=== PATIENT | female | born 1970 | race Caucasian/White ===

== ENCOUNTER 2018-03-10 08:13 | Inpatient (IN) | payer OTHER ==
[2018-03-10] MEDS ORDERED: NITROGLYCERIN 0.4 MG/TAB 25 TAB/BOTTLE ONE (08:35)
[2018-03-10] MEDS ORDERED: NITROGLYCERIN 0.4 MG/TAB 25 TAB/BOTTLE SL PRN (08:36)
--- NOTE | 2018-03-10 08:37 | ER Document Report ---
ED General - General Chief Complaint: Shortness Of Breath Stated Complaint: SHORTNESS OF BREATH Time Seen by Provider: 03/10/18 08:27 TRAVEL OUTSIDE OF THE [place] IN LAST 30 DAYS: No - HPI Patient complains to provider of: Shortness of breath Notes: Patient coming in for evaluation of chest pain and shortness of breath states ongoing since approximately 700/730 yesterday. Patient states woke up this morning for chest pain continued and worsened therefore came to the ER for fur ther evaluation. Patient having diaphoresis states pain is left upper chest left lateral chest that also hurts whenever she moves around takes a deep breath. Patient is states she has been to the wound care approximate 3 times in the last valuation of her symptoms however today worsening. Patient denies any past medical history states no allergies to medications does not take any medications denies smoking denies drinking denies drug abuse. Upon my evaluation patient was to be in mild to moderate distress. Able to speak in complete sentences. - Related Data Allergies/Adverse Reactions: No Known Allergies Allergy (Unverified 03/10/18 08:14) Past Medical History - Social History Smoking Status: Former Smoker Family History: Reviewed & Not Pertinent Review of Systems - Review of Systems Constitutional: No symptoms reported EENT: No symptoms reported Cardiovascular: Chest pain, Dyspnea Respiratory: Short of breath, Sputum Gastrointestinal: No symptoms reported Genitourinary: No symptoms reported Female Genitourinary: No symptoms reported Musculoskeletal: No symptoms reported Skin: No symptoms reported Hematologic/Lymphatic: No symptoms reported Neurological/Psychological: No symptoms reported -: Yes All other systems reviewed and negative Physical Exam - Vital signs Vitals: Pulse Ox 95 03/10/18 08:27 Interpretation: Tachycardic, Tachypneic - General General appearance: Appears well, Alert In distress: Mild - HEENT Head: Normocephalic, Atraumatic Eyes: Normal Pupils: PERRL - Respiratory Respiratory status: Respiratory distress, Tachypnea Chest status: Nontender Breath sounds: Other - Decreased air movement on the right wheezes throughout Chest palpation: Normal - Cardiovascular Rhythm: Regular Heart sounds: Normal auscultation Murmur: No - Abdominal Inspection: Normal Distension: No distension Bowel sounds: Normal Tenderness: Nontender Organomegaly: No organomegaly - Back Back: Normal, Nontender - Extremities General upper extremity: Normal inspection, Nontender, Normal color, Normal ROM, Normal temperature General lower extremity: Normal inspection, Nontender, Normal color, Normal ROM, Normal temperature, Normal weight bearing. No: Carroll's sign - Neurological Neuro grossly intact: Yes Cognition: Normal Orientation: AAOx4 [place] Coma Scale Eye Opening: Spontaneous Arpan Coma Scale Verbal: Oriented [place] Coma Scale Motor: Obeys Commands [place] Coma Scale Total: 15 Speech: Normal Motor strength normal: LUE, RUE, LLE, RLE Sensory: Normal - Psychological Associated symptoms: Normal affect, Normal mood - Skin Skin Temperature: Warm Skin Moisture: Diaphoretic Skin Color: Normal Course - Re-evaluation Re-evalutation: 03/10/18 08:45 Patient coming in with chest pain ongoing for greater than 12 hours with EKG some slight ST segment elevation in V2 V3 pain left upper chest left lower chest with pain on movement and my wrist. Because of the slight EKG changes I did discuss the case with Dr. Echevarria requesting that we give the patient 6 mg of adenosine to slow the heart rate down to think this is possibly underlying atrial fibrillation or an SVT sees no signs of acute OK at this time requesting continuous EKG to be performed while adenosine was given. Same EKG was performed showing slight ST ablation in V2 V3 however we are able to perform a chest x-ray showing complete whiteout of the right side of the lung. Continue to administer IV fluids which did improve the patient's heart rate a repeat EKG that showed sinus tachycardia. At this time with the patient chest x-ray showing complete whiteout consistent with pneumonia I elected to not perform the adenosine I did discuss this with Dr. Echevarria with his new finding do not think patient is having any acute OK but more likely patient is septic from pneumonia reason for the tachycardia of her presentation. Because the extensive size of the pneumonia a CTA was performed going to rule out PE but also to evaluate for underlying mass or obstructive process. CT scan again did not demonstrate a pneumonia with a subpulmonic pleural effusion. Patient's white count returned at 31 patient was started on Levaquin discussed with the hospital staff will admit the patient to IMCU. Patient was continue to monitor down in the ER with very minimal improvement of her respiratory state still to the Neck therefore elected to place the patient on BiPAP Patient will be admitted to the hospital - Vital Signs Vital signs: Temp Pulse Resp BP Pulse Ox 97.6 F 141 H 27 H 144/95 H 98 12/27/18 08:41 03/10/18 08:41 03/10/18 15:15 03/10/18 15:15 03/10/18 15:15 - Laboratory Result Diagrams: 03/10/18 08:55 03/10/18 08:55 Laboratory results interpreted by me: 03/10/18 03/10/18 03/10/18 08:55 08:55 08:55 WBC 31.3 H* RDW 16.4 H Seg Neuts % (Manual) 88 H Band Neutrophils % 2 L Lymphocytes % (Manual) 4 L Myelocytes % 1 H Abs Neuts (Manual) 28.5 H ESR 97 H VBG pH VBG pCO2 Sodium 131.4 L Chloride 96 L Carbon Dioxide 20 L BUN 22 H Lactic Acid Direct Bilirubin 0.7 H AST 49 H Alkaline Phosphatase 257 H Creatine Kinase < 20 L NT-Pro-B Natriuret Pep 2070 H Total Protein 5.3 L Albumin 2.5 L Urine Protein Urine Ketones Urine Ascorbic Acid 03/10/18 03/10/18 03/10/18 08:55 09:17 10:27 WBC RDW Seg Neuts % (Manual) Band Neutrophils % Lymphocytes % (Manual) Myelocytes % Abs Neuts (Manual) ESR VBG pH 7.44 H VBG pCO2 32.8 L Sodium Chloride Carbon Dioxide BUN Lactic Acid 2.4 H Direct Bilirubin AST Alkaline Phosphatase Creatine Kinase NT-Pro-B Natriuret Pep Total Protein Albumin Urine Protein 100 H Urine Ketones 20 H Urine Ascorbic Acid 40 H Critical Care Note - Critical Care Note Total time excluding time spent on procedures (mins): 80 Comments: Multiple evaluations of the patient due to initial EKG abnormalities patient complaining of chest pain diaphoretic concern for possible underlying cardiac issue discussion with the oil treater also time spent managing the patient for her tachypnea requiring BiPAP titration Discharge - Discharge Clinical Impression: Pneumonia Qualifiers: Pneumonia type: due to unspecified organism Laterality: right Lung location: unspecified part of lung Qualified Code(s): J18.9 - Pneumonia, unspecified organism Sepsis Qualifiers: Sepsis type: sepsis due to unspecified organism Qualified Code(s): A41.9 - Sepsis, unspecified organism Condition: Good Disposition: ADMITTED INPATIENT Admitting Provider: Hospitalist - [facility] Admitted: [facility]
[2018-03-10] MEDS ORDERED: ASPIRIN 81 MG TABLET, CHEWABLE PO ONE (08:45)
[2018-03-10] MEDS ORDERED: NORMAL SALINE 1000 ML 1,000 ML IV ONE ×4 (08:48→12:40)
[2018-03-10] MEDS ORDERED: ADENOSINE INJ/PF 6 MG/2 ML SDV IV ONE (08:49)
[2018-03-10] MEDS ORDERED: LEVOFLOXACIN 500 MG/D5W RTU 500 MG/100 ML RTUPB IV ONE (09:06)
--- NOTE | 2018-03-10 09:12 | RADIOLOGY REPORT (SQ) ---
EXAM DESCRIPTION: CHEST SINGLE VIEW COMPLETED DATE/TIME: 03/10/2018 9:02 am REASON FOR STUDY: sob COMPARISON: None. EXAM PARAMETERS: NUMBER OF VIEWS: One view. TECHNIQUE: Single frontal radiographic view of the chest acquired. RADIATION DOSE: NA LIMITATIONS: None. FINDINGS: LUNGS AND PLEURA: Extensive consolidation in the right lung with sparing of the apex. Lef t lung is clear. MEDIASTINUM AND HILAR STRUCTURES: No masses. Contour normal. HEART AND VASCULAR STRUCTURES: Heart normal in size. Normal vasculature. BONES: No acute findings. HARDWARE: None in the chest. OTHER: No other significant finding. IMPRESSION: Right lower and middle lobe pneumonia. Follow up to resolution is recommended. TECHNICAL DOCUMENTATION: JOB ID: [id number] [employer]- All Rights Reserved Reading location - IP/workstation name: [email or web address]
[2018-03-10 09:15] LABS: VENOUS BLOOD BASE EXCESS -1.7 mmol/L; VENOUS BLOOD HCO3 21.7 mmol/L (20-32); VENOUS BLOOD PCO2 32.8 mmHg (35-63); VENOUS BLOOD PH 7.44 (7.30-7.42)
[2018-03-10 09:20] LABS: HEMATOCRIT 37.3 % (36.0-47.0); HEMOGLOBIN 12.4 g/dL (12.0-15.5); MEAN CORPUSCULAR HEMOGLOBIN 27.7 pg (27.0-33.4); MEAN CORPUSCULAR HGB CONC 33.3 g/dL (32.0-36.0); MEAN CORPUSCULAR VOLUME 83 fl (80-97); PLATELET COUNT 406 10^3/uL (150-450); RED BLOOD COUNT 4.47 10^6/uL (3.72-5.28); RED CELL DISTRIBUTION WIDTH 16.4 % (11.5-14.0)
[2018-03-10 09:28] LABS: WHITE BLOOD COUNT 31.3 10^3/uL (4.0-10.5)
[2018-03-10] MEDS ORDERED: IPRATROPIUM/ALBUTEROL 0.5-2.5 MG/3 ML AMPUL NEB ONE (09:31)
[2018-03-10 09:34] LABS: ALANINE AMINOTRANSFERASE 41 U/L (9-52); ALBUMIN 2.5 g/dL (3.5-5.0); ALKALINE PHOSPHATASE 257 U/L (38-126); ANION GAP 15 (5-19); ASPARTATE AMINO TRANSFERASE 49 U/L (14-36); BILIRUBIN,DIRECT 0.7 mg/dL (0.0-0.4); BILIRUBIN,TOTAL 0.9 mg/dL (0.2-1.3); BLOOD UREA NITROGEN 22 mg/dL (7-20); CALCIUM 9.9 mg/dL (8.4-10.2); CARBON DIOXIDE 20 mmol/L (22-30); CHLORIDE 96 mmol/L (98-107); GLUCOSE 90 mg/dL (75-110); POTASSIUM 3.8 mmol/L (3.6-5.0); SODIUM 131.4 mmol/L (137-145); TOTAL PROTEIN 5.3 g/dL (6.3-8.2)
[2018-03-10 09:37] LABS: ABSOLUTE LYMPHOCYTES# (MANUAL) 1.3 10^3/uL (0.5-4.7); ABSOLUTE MONOCYTES # (MANUAL) 1.3 10^3/uL (0.1-1.4); ABSOLUTE NEUTROPHILS# (MANUAL) 28.5 10^3/uL (1.7-8.2); ANISOCYTOSIS SLIGHT; BAND NEUTROPHILS % (MANUAL) 2 % (3-5); BASOPHILS % (MANUAL) 0 % (0-2); CREATINE KINASE < 20 U/L (30-135); EOSINOPHILS % (MANUAL) 1 % (0-6); LYMPHOCYTES % (MANUAL) 4 % (13-45); MONOCYTES % (MANUAL) 4 % (3-13); MYELOCYTES % (MANUAL) 1 % (0); PLATELET COMMENT ADEQUATE; POLYCHROMASIA SLIGHT; SEGMENTED NEUTROPHILS % (MAN) 88 % (42-78); TOTAL CELLS COUNTED 100; TOXIC GRANULATION 2+; TOXIC VACUOLATION PRESENT
[2018-03-10 09:46] LABS: CREATINE KINASE MB 0.43 ng/mL (<4.55); NT PRO BNP 2070 pg/mL (<125)
[2018-03-10 09:47] LABS: TROPONIN I < 0.012 ng/mL
[2018-03-10 09:51] LABS: FREE T4 (FREE THYROXINE) 1.55 ng/dL (0.78-2.19)
[2018-03-10 09:56] LABS: ERYTHROCYTE SEDIMENTATION RATE 97 mm/hr (0-20)
[2018-03-10 10:05] LABS: THYROID STIMULATING HORMONE 3.67 uIU/mL (0.47-4.68)
--- NOTE | 2018-03-10 10:21 | EKG REPORT ---
SEVERITY:- ABNORMAL ECG - SINUS TACHYCARDIA PROBABLE ANTERIOR INFARCT, ACUTE : Confirmed by: Rylee Allen 10-Mar-2018 10:21:09
--- NOTE | 2018-03-10 10:22 | EKG REPORT ---
SEVERITY:- ABNORMAL ECG - SINUS TACHYCARDIA PROBABLE ANTERIOR INFARCT, ACUTE BORDERLINE T ABNORMALITIES, INFERIOR LEADS MINIMAL ST ELEVATION, LATERAL LEADS : Confirmed by: Rylee Allen 10-Mar-2018 10:21:24
--- NOTE | 2018-03-10 10:22 | EKG REPORT ---
SEVERITY:- ABNORMAL ECG - SINUS TACHYCARDIA PROBABLE ANTERIOR INFARCT, ACUTE : Confirmed by: Rylee Allen 10-Mar-2018 10:21:14
--- NOTE | 2018-03-10 10:24 | RADIOLOGY REPORT (SQ) ---
EXAM DESCRIPTION: CTA CHEST COMPLETED DATE/TIME: 03/10/2018 10:00 am REASON FOR STUDY: tachy sob COMPARISON: None. TECHNIQUE: CT scan of the chest performed using helical scanning technique with dynamic intravenous contrast injection. Images reviewed with lung, soft tissue and bone windows. Reconstructed coronal and sagittal MPR images reviewed. Additional 3 dimensional post-processing performed to develop Maximal Intensity Projection images ([place] P). All images stored on PACS. All CT scanners at this facility use dose modulation, iterative reconstruction, and/or weight based d osing when appropriate to reduce radiation dose to as low as reasonably achievable (ALARA). [facility]: Dose Right [facility]: CareDose [facility]: Dose Right [facility]: Teradose 4D [facility]: Zeptor CONTRAST TYPE AND DOSE: contrast/concentration: Isovue 350.00 mg/ml; Total Contrast Delivered: 73.0 ml; Total Saline Delivered: 90.0 ml RENAL FUNCTION: GFR > 60. RADIATION DOSE: CT Rad equipment meets quality standard of care and radiation dose reduction techniq ues were employed. CTDIvol: 14.3 - 33.1 mGy. DLP: 601 mGy-cm. . LIMITATIONS: None. FINDINGS: LUNGS AND PLEURA: Extensive consolidation in the right lung with air bronchograms. Modera te right pleural effusion. Left basilar atelectasis. AORTA AND GREAT VESSELS: No aneurysm. HEART: Small pericardial effusion. PULMONARY ARTERIES: No emboli visualized in the main pulmonary arteries or the segmental branches. HILAR AND MEDIASTINAL STRUCTURES: No identified masses or abnormal nodes. HARDWARE: None in the chest. UPPER ABDOMEN: No significant findings. Limited exam. THYROID AND OTHER SOFT TISSUES: No masses. No adenopathy. BONES: No acute or significant finding. 3D MIPS: Confirm above findings. OTHER: No other significant finding. IMPRESSION: Extensive pneumonia in the right lung. Subpulmonic pleural effusion. COMMENT: Quality ID # [id number]: Final reports with documentation of one or more dose reduction techniques (e.g., Automated exposure control, adjustment of the mA and/or kV according to patient size, use of iterative reconstruction technique) TECHNICAL DOCUMENTATION: JOB ID: [id number] [employer]- All Rights Reserved Reading location - IP/workstation name: [email or web address]
[2018-03-10] MEDS ORDERED: KETOROLAC TROMETHAMINE INJ/PF 30 MG/1 ML SDV IV ONE (11:08)
[2018-03-10 11:16] LABS: APPEARANCE,URINE SLIGHTLY-CLOUDY; BILIRUBIN,URINE NEGATIVE (NEGATIVE); GLUCOSE, URINE NEGATIVE (NEGATIVE); KETONES,URINE 20 mg/dL (NEGATIVE); LEUKOCYTE ESTERASE,URINE NEGATIVE (NEGATIVE); NITRITE,URINE NEGATIVE (NEGATIVE); PROTEIN,URINE 100 mg/dL (NEGATIVE); UROBILINOGEN,URINE NEGATIVE mg/dL (<2.0)
[2018-03-10 11:20] LABS: COLOR,URINE YELLOW; URINE SPECIFIC GRAVITY > 1.060
[2018-03-10] MEDS ORDERED: IPRATROPIUM/ALBUTEROL 0.5-2.5 MG/3 ML AMPUL NEB PRN (13:26)
[2018-03-10] MEDS ORDERED: CEFTRIAXONE 1 GM/D5W RTU 50 ML IV SCH (13:50)
[2018-03-10] MEDS: ENOXAPARIN SODIUM INJ 40 MG/0.4 ML DISP.SYRIN SUBCUT SCH (15:22)
--- NOTE | 2018-03-10 16:29 | PDOC H&P ---
History of Present Illness Admission Date/PCP: 03/10/18 11:01 Patient complains of: Cough, malaise History of Present Illness: AARON VALENCIA is a 47 year old female significant past medical history who presented with 3 weeks or shortness of breath and cough. She went to the urgent care twice and chest x-ray with apparently negative. She now presented to the ED with complaint of pain with cough, malaise, intermittent fever. She denies sick contacts. Evaluation in the ED significant for tachycardia and pneumonia right lower lobe/middle lobe on chest x-ray. CTA revealed no PE, but extensive pneumonia on the right lung and subpulmonic pleural effusion. Patient was also tachypneic, lactic acid was 2.4. She was treated with IV fluid bolus, started o n Levaquin, and referred for admission. Social History Smoking Status: Never Smoker Family History Family History: Mother and father alive and well. Denies them having any significant medical problems. Parental Family History Reviewed: Yes Children Family History Reviewed: Yes Sibling(s) Family History Reviewed.: Yes Medication/Allergy Home Medications: No Home Medications 03/10/18 Allergies/Adverse Reactions: No Known Allergies Allergy (Unverified 03/10/18 08:14) Review of Systems Review of Systems: CONSTITUTIONAL : Feveryes, chills -- No; fatigue -- YES EENT: Denies eye, ear, throat, or mouth pain or symptoms. Denies nasal or sinus congestion or discharge. Denies throat, tongue, or mouth swelling or diff iculty swallowing. CARDIOVASCULAR: Denies chest pain. No racing heart RESPIRATORY: Coughyes; shortness of breath, difficulty breathingyes. GASTROINTESTINAL: Denies abdominal pain or distention. Denies nausea, vomiting, or diarrhea. No rectal bleeding. GENITOURINARY: Urinary symptoms -- no. MUSCULOSKELETAL: No acute weakness SKIN: Denies rash, lesions or sores. HEMATOLOGIC : Denies easy bruising or bleeding. LYMPHATIC: Denies swollen, enlarged glands. NEUROLOGICAL: New weakness, headaches, slured speach - No PSYCHIATRIC: Changes anxiety or stress, depression, suicidal ideation, or homicidal ideation -- No ALL OTHER SYSTEMS REVIEWED AND NEGATIVE. Physical Exam Vital Signs: Temp Pulse Resp BP Pulse Ox 97.6 F 141 H 32 H 138/105 H 99 03/10/18 08:41 03/10/18 08:41 03/10/18 13:10 03/10/18 13:10 03/10/18 13:10 Intake & Output 03/09/18 03/10/18 03/11/18 06:59 06:59 06:59 Intake Total 2277 Balance 2277 Weight 77.1 kg GENERAL: Well-developed, well-nourished some respiratory distress on BiPAP HEENT: Normocephalic/atraumatic NECK supple, no JVD CARDIOVASCULAR: RRR, normal S1-S2, no appreciable murmur LUNGS: Right lower lobe crackles, good air movement bilaterally ABDOMEN: Soft, NT, NL bowel sounds EXTREMITIES: No edema, clubbing, cyanosis NEUROLOGICAL: Alert, oriented x 3, no acute or lateralizing weakness Results Laboratory Results: 03/10/18 08:55 03/10/18 08:55 03/10/18 03/10/18 03/10/18 08:55 08:55 08:55 WBC 31.3 H* RBC 4.47 Hgb 12.4 Hct 37.3 MCV 83 MCH 27.7 MCHC 33.3 RDW 16.4 H Plt Count 406 Seg Neutrophils % Not Reportable Lymphocytes % Not Reportable Monocytes % Not Reportable Eosinophils % Not Reportable Basophils % Not Reportable Absolute Neutrophils Not Reportable Absolute Lymphocytes Not Reportable Absolute Monocytes Not Reportable Absolute Eosinophils Not Reportable Absolute Basophils Not Reportable VBG pH VBG pCO2 VBG HCO3 VBG Base Excess Sodium 131.4 L Potassium 3.8 Chloride 96 L Carbon Dioxide 20 L Anion Gap 15 BUN 22 H Creatinine 0.90 Est GFR ( Amer) > 60 Est GFR (Non-Af Amer) > 60 Glucose 90 Lactic Acid Calcium 9.9 Total Bilirubin 0.9 AST 49 H ALT 41 Alkaline Phosphatase 257 H Total Protein 5.3 L Albumin 2.5 L TSH 3.67 Free T4 1.55 Urine Color Urine Appearance Urine pH Ur Specific [place] Urine Protein Urine Glucose (UA) Urine Ketones Urine Blood Urine Nitrite Ur Leukocyte Esterase Urine WBC (Auto) Urine RBC (Auto) 03/10/18 03/10/18 03/10/18 08:55 09:17 10:27 WBC RBC Hgb Hct MCV MCH MCHC RDW Plt Count Seg Neutrophils % Lymphocytes % Monocytes % Eosinophils % Basophils % Absolute Neutrophils Absolute Lymphocytes Absolute Monocytes Absolute Eosinophils Absolute Basophils VBG pH 7.44 H VBG pCO2 32.8 L VBG HCO3 21.7 VBG Base Excess -1.7 Sodium Potassium Chloride Carbon Dioxide Anion Gap BUN Creatinine Est GFR ( Amer) Est GFR (Non-Af Amer) Glucose Lactic Acid 2.4 H Calcium Total Bilirubin AST ALT Alkaline Phosphatase Total Protein Albumin TSH Free T4 Urine Color YELLOW Urine Appearance SLIGHTLY-CLOUDY Urine pH 5.0 Ur Specific [place] > 1.060 Urine Protein 100 H Urine Glucose (UA) NEGATIVE Urine Ketones 20 H Urine Blood NEGATIVE Urine Nitrite NEGATIVE Ur Leukocyte Esterase NEGATIVE Urine WBC (Auto) 16 Urine RBC (Auto) 37 03/10/18 03/10/18 08:55 08:55 Creatine Kinase < 20 L CK-MB (CK-2) 0.43 Troponin I < 0.012 NT-Pro-B Natriuret Pep 2069 H Impressions: Chest X-Ray 03/10/18 08:27 IMPRESSION: Right lower and middle lobe pneumonia. Follow up to resolution is recommended. Chest/Abdomen CTA 03/10/18 09:07 IMPRESSION: Extensive pneumonia in the right lung. Subpulmonic pleural effusion. Assessment & Plan - Diagnosis (1) Sepsis Qualifiers: Sepsis type: sepsis due to unspecified organism Qualified Code(s): A41.9 - Sepsis, unspecified organism Is this a current diagnosis for this admission?: Yes (2) Community acquired pneumonia Is this a current diagnosis for this admission?: Yes (3) Leukocytosis Is this a current diagnosis for this admission?: Yes (4) Tachycardia Is this a current diagnosis for this admission?: Yes - Plan Summary Plan Summary: Patient has sepsis as evidenced by tachycardia, tachypnea, white blood cells of 31,000, pneumonia as pulmonary source of infection. Patient also with elevated lactic acid. Her marked leukocytosis likely secondary to pneumonia, as is his tachycardia. Patient has received a Levaquin dose in the ED as well as IV fluid boluses. Since she is very sick, I will also add ceftriaxone. The Levaquin should also serve for double coverage for atypicals as well as cover the atypical bugs. We will continue aggressive IV fluids. Continue BiPAP for now. Patient will be admitted to IMCU and monitored closely. If no significant improvement in the next 24 hours, will consider adding vancomycin. Follow blood culture results, follow sputum cultures. Questionable etiology of elevated troponin of 2069. Patient denies any history of CHF and she does not appear volume overloaded. Will monitor patient closely.
[2018-03-10] MEDS: ACETAMINOPHEN 325 MG TABLET PO PRN (16:40)
[2018-03-10] MEDS: NORMAL SALINE 1000 ML 1,000 ML IV PRN ×2 (16:46→22:24)
[2018-03-10] MEDS: CEFTRIAXONE SODIUM 1,000 MG in DEXTROSE 5%-WATER 50 ML IV SCH (19:15)
[2018-03-10] MEDS: OXYCODONE-ACETAMINOPHEN 5-325 MG TABLET PO PRN (19:53)
[2018-03-10] MEDS ORDERED: METOPROLOL SUCCINATE 50 MG TAB.SR.24H PO ONE (22:15)
[2018-03-10] MEDS ORDERED: METOPROLOL TARTRATE PF/INJ 5 MG/5 ML SDV IV ONE (22:15)
[2018-03-11] MEDS: OXYCODONE-ACETAMINOPHEN 5-325 MG TABLET PO PRN ×4 (02:21→20:29)
[2018-03-11 05:52] LABS: HEMATOCRIT 33.4 % (36.0-47.0); HEMOGLOBIN 11.3 g/dL (12.0-15.5); MEAN CORPUSCULAR HEMOGLOBIN 28.4 pg (27.0-33.4); MEAN CORPUSCULAR VOLUME 84 fl (80-97); PLATELET COUNT 362 10^3/uL (150-450); RED CELL DISTRIBUTION WIDTH 16.3 % (11.5-14.0); WHITE BLOOD COUNT 22.4 10^3/uL (4.0-10.5)
[2018-03-11 06:11] LABS: ALANINE AMINOTRANSFERASE 28 U/L (9-52); ALBUMIN 2.8 g/dL (3.5-5.0); ALKALINE PHOSPHATASE 245 U/L (38-126); ANION GAP 10 (5-19); ASPARTATE AMINO TRANSFERASE 45 U/L (14-36); BILIRUBIN,DIRECT 0.6 mg/dL (0.0-0.4); BILIRUBIN,TOTAL 0.8 mg/dL (0.2-1.3); BLOOD UREA NITROGEN 31 mg/dL (7-20); CALCIUM 9.6 mg/dL (8.4-10.2); CARBON DIOXIDE 20 mmol/L (22-30); CHLORIDE 105 mmol/L (98-107); GLUCOSE 103 mg/dL (75-110); POTASSIUM 4.7 mmol/L (3.6-5.0); SODIUM 135.4 mmol/L (137-145); TOTAL PROTEIN 6.3 g/dL (6.3-8.2)
[2018-03-11 06:30] LABS: ABSOLUTE LYMPHOCYTES# (MANUAL) 2.2 10^3/uL (0.5-4.7); ABSOLUTE NEUTROPHILS# (MANUAL) 17.9 10^3/uL (1.7-8.2); BAND NEUTROPHILS % (MANUAL) 1 % (3-5); BASOPHILS % (MANUAL) 0 % (0-2); EOSINOPHILS % (MANUAL) 1 % (0-6); LYMPHOCYTES % (MANUAL) 10 % (13-45); MONOCYTES % (MANUAL) 9 % (3-13); SEGMENTED NEUTROPHILS % (MAN) 79 % (42-78); TOTAL CELLS COUNTED 100
[2018-03-11 06:31] LABS: ANISOCYTOSIS SLIGHT; PLATELET COMMENT ADEQUATE; PLATELET LARGE PRESENT
[2018-03-11] MEDS: NORMAL SALINE 1000 ML 1,000 ML IV PRN ×4 (06:51→17:41)
[2018-03-11] MEDS: LEVOFLOXACIN 750 MG/D5W RTU 750 MG/150 ML RTUPB IV SCH (09:19)
[2018-03-11] MEDS: ENOXAPARIN SODIUM INJ 40 MG/0.4 ML DISP.SYRIN SUBCUT SCH (09:19)
[2018-03-11 11:18] LABS: PATH REVIEW PATHOLOGIST REVIEWED
--- NOTE | 2018-03-11 13:05 | PDOC PROGRESS REPORT ---
Subjective Progress Note for:: 03/11/18 Subjective:: Still with cough and shortness of breath but already feels much better. Still requiring BiPAP. at bedside. Denies fever or chills. Does not feel discomfort with palpitation. No abdominal pain, no diarrhea. Reason For Visit: SEPSIS,PNEUMONIA Physical Exam Vital Signs: Temp Pulse Resp BP Pulse Ox 98.9 F 114 H 32 H 153/107 H 96 03/11/18 07:27 03/11/18 07:27 03/11/18 08:00 03/11/18 07:27 03/11/18 08:00 Intake & Output 03/10/18 03/11/18 03/12/18 06:59 06:59 06:59 Intake Total 5344 1150 Output Total 0 Balance 5344 1150 Weight 80.6 kg GENERAL: Well-developed, well-nourished, on BiPAP, no acute distress HEENT: Normocephalic/atraumatic NECK supple, no JVD CARDIOVASCULAR: Tachycardic, normal S1-S2, no appreciable murmur LUNGS: Right lower lobe crackles, good air movement bilaterally ABDOMEN: Soft, NT, NL bowel sounds EXTREMITIES: No edema, clubbing, cyanosis NEUROLOGICAL: Alert, oriented x 3, no acute weakness Results Laboratory Results: 03/11/18 05:30 03/11/18 05:30 03/10/18 03/11/18 03/11/18 15:03 05:30 05:30 WBC 22.4 H RBC 4.00 Hgb 11.3 L Hct 33.4 L MCV 84 MCH 28.4 MCHC 34.0 RDW 16.3 H Plt Count 362 Seg Neutrophils % Not Reportable Lymphocytes % Not Reportable Monocytes % Not Reportable Eosinophils % Not Reportable Basophils % Not Reportable Absolute Neutrophils Not Reportable Absolute Lymphocytes Not Reportable Absolute Monocytes Not Reportable Absolute Eosinophils Not Reportable Absolute Basophils Not Reportable Sodium 135.4 L Potassium 4.7 Chloride 105 Carbon Dioxide 20 L Anion Gap 10 BUN 31 H Creatinine 0.92 Est GFR ( Amer) > 60 Est GFR (Non-Af Amer) > 60 Glucose 103 Lactic Acid 2.4 H Calcium 9.6 Total Bilirubin 0.8 AST 45 H ALT 28 Alkaline Phosphatase 245 H Total Protein 6.3 Albumin 2.8 L 03/10/18 03/10/18 03/10/18 08:55 08:55 15:03 Creatine Kinase < 20 L CK-MB (CK-2) 0.43 Troponin I < 0.012 < 0.012 NT-Pro-B Natriuret Pep 2069 H Impressions: Chest X-Ray 03/10/18 08:27 IMPRESSION: Right lower and middle lobe pneumonia. Follow up to resolution is recommended. Chest/Abdomen CTA 03/10/18 09:07 IMPRESSION: Extensive pneumonia in the right lung. Subpulmonic pleural effusion. Assessment & Plan - Diagnosis (1) Sepsis Qualifiers: Sepsis type: sepsis due to unspecified organism Qualified Code(s): A41.9 - Sepsis, unspecified organism Is this a current diagnosis for this admission?: Yes (2) Bacteremia Is this a current diagnosis for this admission?: Yes (3) Community acquired pneumonia Is this a current diagnosis for this admission?: Yes (4) Leukocytosis Is this a current diagnosis for this admission?: Yes (5) Tachycardia Is this a current diagnosis for this admission?: Yes - Plan Summary Plan Summary: Will continue to monitor in IMCU. Continue BiPAP. Blood cultures already growing gram-positive cocci in chains. This is very likely strep, will follow identification of the bug and sensitivity. We will continue antibiotics regimen with Rocephin and Levaquin at this time pending sensitivity. Of note is that white count already markedly improved from 31,000 yesterday to 22,400 today. Patient still tachycardic. Repeat lactic acid yesterday was stable at 2.4. Will increase IV fluid from 120 mL/h to 150 mm per and monitor patient closely. Of note is that questionable etiology of patient's elevated BNP of 2069 by presentation yesterday. Patient denies any history of CHF and she still does not appear volume overloaded. Will continue to monitor patient closely. We will follow-up CBC, Chem-7, lactic acid, and BNP in a.m. Also follow-up blood and sputum cultures results.
[2018-03-11] MEDS: METOPROLOL TARTRATE 25 MG TABLET PO SCH ×2 (14:36→22:11)
[2018-03-11] MEDS: CEFTRIAXONE SODIUM 1,000 MG in DEXTROSE 5%-WATER 50 ML IV SCH (17:40)
[2018-03-12] MEDS: ACETAMINOPHEN 325 MG TABLET PO PRN (00:44)
[2018-03-12] MEDS: NORMAL SALINE 1000 ML 1,000 ML IV PRN ×2 (01:23→09:23)
[2018-03-12] MEDS: OXYCODONE-ACETAMINOPHEN 5-325 MG TABLET PO PRN ×2 (04:52→14:20)
[2018-03-12 07:18] LABS: ANION GAP 9 (5-19); BLOOD UREA NITROGEN 33 mg/dL (7-20); CALCIUM 9.4 mg/dL (8.4-10.2); CARBON DIOXIDE 20 mmol/L (22-30); CHLORIDE 107 mmol/L (98-107); GLUCOSE 86 mg/dL (75-110); POTASSIUM 5.1 mmol/L (3.6-5.0); SODIUM 135.7 mmol/L (137-145)
[2018-03-12 07:41] LABS: HEMATOCRIT 31.9 % (36.0-47.0); HEMOGLOBIN 10.7 g/dL (12.0-15.5); MEAN CORPUSCULAR HEMOGLOBIN 28.4 pg (27.0-33.4); MEAN CORPUSCULAR HGB CONC 33.4 g/dL (32.0-36.0); MEAN CORPUSCULAR VOLUME 85 fl (80-97); PLATELET COUNT 331 10^3/uL (150-450); RED BLOOD COUNT 3.76 10^6/uL (3.72-5.28); RED CELL DISTRIBUTION WIDTH 16.8 % (11.5-14.0); WHITE BLOOD COUNT 18.4 10^3/uL (4.0-10.5)
[2018-03-12 08:22] LABS: ABSOLUTE LYMPHOCYTES# (MANUAL) 2.4 10^3/uL (0.5-4.7); ABSOLUTE MONOCYTES # (MANUAL) 1.3 10^3/uL (0.1-1.4); ABSOLUTE NEUTROPHILS# (MANUAL) 14.5 10^3/uL (1.7-8.2); ANISOCYTOSIS 1+; BASOPHILS % (MANUAL) 0 % (0-2); EOSINOPHILS % (MANUAL) 1 % (0-6); LYMPHOCYTES % (MANUAL) 13 % (13-45); MONOCYTES % (MANUAL) 7 % (3-13); PLATELET COMMENT ADEQUATE; SEGMENTED NEUTROPHILS % (MAN) 79 % (42-78); TOTAL CELLS COUNTED 100
[2018-03-12] MEDS: LEVOFLOXACIN 750 MG/D5W RTU 750 MG/150 ML RTUPB IV SCH (09:23)
[2018-03-12] MEDS: ENOXAPARIN SODIUM INJ 40 MG/0.4 ML DISP.SYRIN SUBCUT SCH (09:24)
[2018-03-12] MEDS: METOPROLOL TARTRATE 25 MG TABLET PO SCH (09:24)
--- NOTE | 2018-03-12 11:38 | RADIOLOGY REPORT (SQ) ---
EXAM DESCRIPTION: CHEST 2 VIEWS COMPLETED DATE/TIME: 03/12/2018 10:42 am REASON FOR STUDY: PNA/diminished breath sounds COMPARISON: 03/10/2018. EXAM PARAMETERS: NUMBER OF VIEWS: two views TECHNIQUE: Digital Frontal and Lateral radiographic views of the chest acquired. RADIATION DOSE: NA LIMITATIONS: none FINDINGS: LUNGS AND PLEURA: Dense consolidation in the right lung to the level of the apex. The lef t lung is clear. MEDIASTINUM AND HILAR STRUCTURES: No masses or contour abnormalities. HEART AND VASCULAR STRUCTURES: Heart normal size. No evidence for failure. BONES: No acute findings. HARDWARE: None in the chest. OTHER: No other significant finding. IMPRESSION: Right upper lower lobe pneumonia. No significant change. TECHNICAL DOCUMENTATION: JOB ID: [id number] [employer]- All Rights Reserved Reading location - IP/workstation name: [email or web address]
--- NOTE | 2018-03-12 11:51 | PDOC PROGRESS REPORT ---
Subjective Progress Note for:: 03/12/18 Subjective:: Still with cough and shortness of breath but continues to feel improving. She is however still requiring BiPAP, with significant shortness of breath and still to recover when it's taken off. at bedside. Denies fever or chills. No abdominal pain, no diarrhea. BP's were running high, and also given tachycardia, patient started on metoprolol 25 mg twice daily and tolerating. Reason For Visit: SEPSIS,PNEUMONIA Physical Exam Vital Signs: Temp Pulse Resp BP Pulse Ox 97.6 F 101 H 19 142/112 H 100 03/12/18 07:50 03/12/18 07:50 03/12/18 07:50 03/12/18 07:50 03/12/18 07:50 Intake & Output 03/11/18 03/12/18 03/13/18 06:59 06:59 06:59 Intake Total 5344 4343 1000 Output Total 0 Balance 5344 4343 1000 Weight 80.6 kg 84.5 kg GENERAL: Well-developed, well-nourished, on BiPAP, no acute distress HEENT: Normocephalic/atraumatic NECK supple, no JVD CARDIOVASCULAR: Slightly tachycardic, normal S1-S2, no appreciable murmur LUNGS: Right lower lobe crackles with decreased breath sounds, good air movement left ABDOMEN: Soft, NT, NL bowel sounds EXTREMITIES: No edema, clubbing, cyanosis NEUROLOGICAL: Alert, oriented x 3, no acute weakness Results Laboratory Results: 03/12/18 06:07 03/12/18 06:07 03/12/18 03/12/18 06:07 06:07 WBC 18.4 H RBC 3.76 Hgb 10.7 L Hct 31.9 L MCV 85 MCH 28.4 MCHC 33.4 RDW 16.8 H Plt Count 331 Seg Neutrophils % Not Reportable Lymphocytes % Not Reportable Monocytes % Not Reportable Eosinophils % Not Reportable Basophils % Not Reportable Absolute Neutrophils Not Reportable Absolute Lymphocytes Not Reportable Absolute Monocytes Not Reportable Absolute Eosinophils Not Reportable Absolute Basophils Not Reportable Sodium 135.7 L Potassium 5.1 H Chloride 107 Carbon Dioxide 20 L Anion Gap 9 BUN 33 H Creatinine 0.78 Est GFR ( Amer) > 60 Est GFR (Non-Af Amer) > 60 Glucose 86 Calcium 9.4 Magnesium 2.7 H 03/10/18 03/10/18 03/10/18 08:55 08:55 15:03 Creatine Kinase < 20 L CK-MB (CK-2) 0.43 Troponin I < 0.012 < 0.012 NT-Pro-B Natriuret Pep 2070 H 03/12/18 06:07 Creatine Kinase CK-MB (CK-2) Troponin I NT-Pro-B Natriuret Pep 801 H Impressions: Chest/Abdomen CTA 03/10/18 09:07 IMPRESSION: Extensive pneumonia in the right lung. Subpulmonic pleural effusion. Assessment & Plan - Diagnosis (1) Sepsis Qualifiers: Sepsis type: sepsis due to unspecified organism Qualified Code(s): A41.9 - Sepsis, unspecified organism Is this a current diagnosis for this admission?: Yes (2) Bacteremia Is this a current diagnosis for this admission?: Yes (3) Community acquired pneumonia Is this a current diagnosis for this admission?: Yes (4) Leukocytosis Is this a current diagnosis for this admission?: Yes (5) Tachycardia Is this a current diagnosis for this admission?: Yes - Plan Summary Plan Summary: Patient still with significant hypoxia. Follow-up chest x-ray revealing significant abnormality right lung still, questionable near opacification. Will obtain pulmonology consult, Dr. Yost called and he will kindly see the patient. Will continue to monitor in IMCU. Continue BiPAP. Blood cultures growing gram- positive cocci in chains. We will continue antibiotics regimen with Rocephin and Levaquin at this time pending sensitivity. Encouraging is that white blood cells count is continuing to improve from 31,000 by admission --> 22,400--> 18,400. Patient tachycardia has improved. Will increase IV fluid from 150 mL/h to 100 ml/hr and continue to monitor patient closely. Of note is that questionable etiology of patient's elevated BNP of 2070 by admission. Encouraging is that it is decreased to 801 by rechecking today, in spite of aggressive fluid resuscitation. Patient denies any history of CHF and she still does not appear volume overloaded. Will continue to monitor patient closely. We will follow-up CBC, Chem-7 in a.m. Also continue to follow-up blood and sputum cultures results. BP's were running high, and also given patient's tachycardia, she was started on metoprolol 25 mg twice daily and she is tolerating.
[2018-03-12] MEDS ORDERED: NORMAL SALINE 1000 ML 1,000 ML IV PRN (13:03)
[2018-03-12] MEDS ORDERED: LIDOCAINE 1% INJ-PF (10 MG/ML) 30 ML SDV ONE (13:08)
[2018-03-12] MEDS ORDERED: VANCOMYCIN HCL INJ 1000 MG VIAL IV ONE (13:24)
[2018-03-12 13:46] LABS: ANION GAP 13 (5-19); BLOOD UREA NITROGEN 31 mg/dL (7-20); CALCIUM 9.4 mg/dL (8.4-10.2); CARBON DIOXIDE 18 mmol/L (22-30); CHLORIDE 106 mmol/L (98-107); GLUCOSE 90 mg/dL (75-110); POTASSIUM 5.2 mmol/L (3.6-5.0); SODIUM 136.8 mmol/L (137-145)
[2018-03-12] MEDS ORDERED: PIPERACILLIN SODIUM/TAZOBACTAM 3.375 GM in NORMAL SALINE 100 ML IV SCH (14:00)
[2018-03-12] MEDS ORDERED: PIPERACILLIN/TAZOBACTAM 3.375 GM VIAL IV SCH (14:00)
--- NOTE | 2018-03-12 14:23 | RADIOLOGY REPORT (SQ) ---
EXAM DESCRIPTION: U/S CHEST; U/S THORACENTESIS WITH IMAGING COMPLETED DATE/TIME: 03/12/2018 1:46 pm REASON FOR STUDY: Quantify pleural effusion, bilateral; pleural effusion COMPARISON: CT chest 03/10/2018. Radiographs 03/12/2018. FINDINGS: Limited ultrasound imaging was performed to allow marking for clinician thoracentesis. La rge right complicated effusion noted. Please see clinical note for procedure. TECHNICAL DOCUMENTATION: JOB ID: [id number] Reading location - IP/workstation name: [email or web address]
--- NOTE | 2018-03-12 14:23 | RADIOLOGY REPORT (SQ) ---
EXAM DESCRIPTION: U/S CHEST; U/S THORACENTESIS WITH IMAGING COMPLETED DATE/TIME: 03/12/2018 1:46 pm REASON FOR STUDY: Quantify pleural effusion, bilateral; pleural effusion COMPARISON: CT chest 03/10/2018. Radiographs 03/12/2018. FINDINGS: Limited ultrasound imaging was performed to allow marking for clinician thoracentesis. La rge right complicated effusion noted. Please see clinical note for procedure. TECHNICAL DOCUMENTATION: JOB ID: [id number] Reading location - IP/workstation name: [email or web address]
[2018-03-12] MEDS ORDERED: VANCOMYCIN HCL 1,250 MG in DEXTROSE 5%-WATER 250 ML IV SCH (14:45)
[2018-03-12 14:58] LABS: FLUID TYPE PLEURAL
[2018-03-12 14:59] LABS: FLUID APPEARANCE CLOUDY; FLUID COLOR YELLOW; FLUID SOURCE LUNG; FLUID VISCOSITY SLIGHTLY VISCOUS
[2018-03-12 16:16] VITALS: BP 160/102
--- NOTE | 2018-03-12 16:32 | RADIOLOGY REPORT (SQ) ---
EXAM DESCRIPTION: CHEST SINGLE VIEW COMPLETED DATE/TIME: 03/12/2018 4:22 pm REASON FOR STUDY: chest tube insertion COMPARISON: 03/12/2018 earlier study. FINDINGS: Single-view chest, AP portable upright at approximately 1418 hours. Slightly improved right lung aeration post reported thoracentesis. Persistent dense consolidation wi th air bronchograms in the right base. Improving airspace disease in the right upper lobe. Left mitch g clear. No pneumothorax. No indwelling lines appreciated. TECHNICAL DOCUMENTATION: JOB ID: [id number] Reading location - IP/workstation name: [email or web address]
--- NOTE | 2018-03-12 17:23 | OPERATIVE REPORT E ---
Operative Report NAME: AARON VALENCIA : 1970 AGE: 47Y DATE OF SURGERY: 03/12/2018 ROOM: 336 BRIEF HISTORY: The patient is a 47-year-old female who came with severe pneumonia, right lung with moderate pleural effusion on chest CT scan. Performed chest ultrasound today, noted loculated pleural effusion, right chest with floating pleural fluid debris. PROCEDURE: Ultrasound guided thoracentesis, right chest. SURGEON: SOFÍA BECKER M.D. INDICATION: Moderate pleural effusion, parapneumonic, most likely complicated; loculated pleural effusion by chest ultrasound. ANESTHESIA: Topical anesthesia using 2% lidocaine solution to total dose of 10 mL. OPERATIVE NOTE: Consent was obtained from the patient. The patient verbalized understanding of the indication, risks and potential complications of the procedure. Complications may include pneumothorax, bleeding, or infection. Facemask, sterile gloves, sterile gown and sterile drapes and sterile cover were used during the procedure. The thoracentesis needle entry site was marked by myself, during the chest ultrasound. Chlorhexidine wipe was applied around the thoracentesis entry site. Sterile drapes were placed on top of the operative site. Using aseptic technique, lidocaine 10 mL 2% was injected into the thoracentesis needle entry site. A small skin incision was placed on the needle entry site. The thoracentesis needle was inserted through the incision and the syringe was withdrawn to aspirate as the thoracentesis needle was inserted until able to withdraw pleural fluid. A yellowish-whitish turbid pleural fluid was withdrawn confirming pleural space entry, and a plastic catheter was passed over the needle into the pleural space. The needle was then removed and the pleural fluid was drained, about 300 mL of pleural fluid was collected. The pleural fluid was nonbloody, nonserosanguineous, but yellowish-whitish, appeared purulent pleural effusion. The thoracentesis was ended when the patient started coughing frequently. The pleural fluid will be sent for microbiology, cell count, and chemistry. The patient tolerated the procedure well. Chest x-ray will be performed after the procedure. The skin incision needle entry site was then covered with sterile gauze. COMPLICATIONS: None. No adverse events noted during the procedure. BLOOD LOSS: None. DICTATING PHYSICIAN: SOFÍA BECKER MD,LISETTE,MPH [id number] PHY#: [id number] ID: [id number] JOB#: [id number] ACCT: [id number] cc:SOFÍA BECKER M.D. > ARIEL
--- NOTE | 2018-03-12 18:05 | PDOC TRANSFER SUMMARY ---
General Admission Date/PCP: 03/10/18 11:01 - Transfer Diagnosis (1) Sepsis Is this a current diagnosis for this admission?: Yes (2) Bacteremia Is this a current diagnosis for this admission?: Yes (3) Community acquired pneumonia Is this a current diagnosis for this admission?: Yes (4) Leukocytosis Is this a current diagnosis for this admission?: Yes (5) Tachycardia Is this a current diagnosis for this admission?: Yes (6) Empyema, right Is this a current diagnosis for this admission?: Yes - Transfer Medications Home Medications: No Home Medications 03/10/18 Transfer Medications: Current Medications Acetaminophen (Tylenol 325 Mg Tablet) 325 mg PO Q4HP PRN PRN Reason: FOR PAIN Stop: 04/09/18 15:52 Last Admin: 03/12/18 00:44 Dose: 325 mg Documented by: Albuterol/Ipratropium (Duoneb 3 Ml Ampul) 3 ml NEB RTQ4HP PRN PRN Reason: SHORTNESS OF BREATH Stop: 04/09/18 13:25 Last Admin: 03/11/18 14:20 Dose: 3 ml Documented by: Enoxaparin Sodium (Lovenox Inj 40 Mg/0.4 Ml Disp.Syrin) 40 mg SUBCUT DAILY [facility] Stop: 04/09/18 13:44 Last Admin: 03/12/18 09:24 Dose: 40 mg Documented by: Levofloxacin/Dextrose (Levaquin Rtu 750 Mg/D5w 150 Ml Premix) 750 mg in 150 mls @ 100 mls/hr IV DAILY [facility] Stop: 03/18/18 09:59 Last Infusion: 03/12/18 11:46 Dose: Infused Documented by: Sodium Chloride (Nacl 0.9% 1000 Ml Iv Soln) 1,000 mls @ 100 mls/hr IV CONTINUOUS PRN PRN Reason: THIS MED IS NOT "PRN" Stop: 04/11/18 13:02 Last Admin: 03/12/18 14:25 Dose: 100 mls/hr Documented by: Piperacillin Sod/Tazobactam (Sod 3.375 gm/ Sodium Chloride) 100 mls @ 200 mls/hr IV Q8 [facility] Stop: 03/19/18 13:59 Last Infusion: 03/12/18 15:36 Dose: Infused Documented by: Vancomycin HCl 1,250 mg/ (Dextrose) 250 mls @ 166.667 mls/hr IV Q12 [facility] Stop: 03/19/18 14:44 Last Admin: 03/12/18 15:46 Dose: 166.67 ml/hr, 166.67 mls/hr Documented by: Metoprolol Tartrate (Lopressor 25 Mg Tablet) 25 mg PO Q12 [facility] Stop: 04/10/18 14:44 Last Admin: 03/12/18 09:24 Dose: 25 mg Documented by: Oxycodone/Acetaminophen (Percocet 5-325 Mg Tablet) 1 tab PO Q6HP PRN PRN Reason: SEVERE PAIN Stop: 03/17/18 18:45 Last Admin: 03/12/18 14:20 Dose: 1 tab Documented by: Sodium Chloride (Saline Flush 2.5 Ml Monoject Prefil Syrin) 2.5 ml IV Q8 [facility] Stop: 04/09/18 13:59 Last Admin: 03/12/18 14:20 Dose: 2.5 ml Documented by: - Allergies Allergies/Adverse Reactions: No Known Allergies Allergy (Unverified 03/10/18 08:14) Hospital Course Hospital Course: Patient was admitted after presentation to [facility] ED on 03/10/18 as in HPI below: "AARON VALENCIA is a 47 year old female significant past medical history who presented with 3 weeks or shortness of breath and cough. She went to the urgent care twice and chest x-ray was apparently negative. She now presented to the ED with complaint of pain with cough, malaise, intermittent fever. She denies sick contacts. Evaluation in the ED significant for tachycardia and pneumonia right lower lobe/middle lobe on chest x-ray. CTA revealed no PE, but extensive pneumonia on the right lung and subpulmonic pleural effusion. Patient was also tachypneic, lactic acid was 2.4. She was treated with IV fluid bolus, started on Levaquin, and referred for admission." Patient was admitted to IMCU. She had difficult work of breathing and was treated with BiPAP. Rocephin was added to Levaquin for at least double coverage of typical pneumonia. She was treated with IV fluid bolus and continued on aggressive fluid management, initially at 120 mL an hour and then increased to 150 mL/h, but today this has been decreased to 100 mm/h. White blood cells by presentation was 31,000. Encouraging is that the white blood cells count is continuing to improve from 31,000 by admission --> 22,400--> 18,400 pack today. However 48 hours later by today patient still had difficult work of breathing and requiring BiPAP. A repeat chest x-ray still showed extensive right-sided changes. Pulmonology consultation with Dr. Yost was obtained. Ultrasound revealed complex right pleural effusion. Dr. Yost attempted thoracentesis and there was pus/empyema. He discussed with Dr. Billy, CV surgery, at [facility] and he has kindly accepted the patient. Of note is that blood cultures growing gram-positive cocci in chains in 1 of 2 bottles. Sputum culture still pending. Antibiotics has been changed to Vanco, Zosyn, Rocephin discontinued. Levaquin continued. Discussed transfer with patient and the and they are in agreement. She is currently hemodynamically stable for transfer. Also of note is a questionable etiology of patient's elevated BNP of 2070 by admission. Patient denies any history of CHF and she did not appear volume overloaded. Encouraging is that the BNP has decreased to 801 by recheck today, in spite of aggressive fluid resuscitation. Please continue to monitor patient closely. Physical Exam Vital Signs: Temp Pulse Resp BP Pulse Ox 98.9 F 117 H 30 H 160/102 H 100 03/12/18 16:13 03/12/18 16:13 03/12/18 16:13 03/12/18 16:13 03/12/18 16:13 Intake & Output 03/11/18 03/12/18 03/13/18 06:59 06:59 06:59 Intake Total 5344 4343 1768 Output Total 0 Balance 5344 4343 1768 Weight 80.6 kg 84.5 kg GENERAL: Well-developed, well-nourished, on BiPAP, no acute distress HEENT: Normocephalic/atraumatic NECK supple, no JVD CARDIOVASCULAR: Slightly tachycardic, normal S1-S2, no appreciable murmur LUNGS: Right lower lobe crackles with decreased breath sounds, good air movement left ABDOMEN: Soft, NT, NL bowel sounds EXTREMITIES: No edema, clubbing, cyanosis NEUROLOGICAL: Alert, oriented x 3, no acute weakness Results Laboratory Results: 03/12/18 06:07 03/12/18 12:34 03/12/18 03/12/18 03/12/18 06:07 06:07 12:34 WBC 18.4 H RBC 3.76 Hgb 10.7 L Hct 31.9 L MCV 85 MCH 28.4 MCHC 33.4 RDW 16.8 H Plt Count 331 Seg Neutrophils % Not Reportable Lymphocytes % Not Reportable Monocytes % Not Reportable Eosinophils % Not Reportable Basophils % Not Reportable Absolute Neutrophils Not Reportable Absolute Lymphocytes Not Reportable Absolute Monocytes Not Reportable Absolute Eosinophils Not Reportable Absolute Basophils Not Reportable Sodium 135.7 L 136.8 L Potassium 5.1 H 5.2 H Chloride 107 106 Carbon Dioxide 20 L 18 L Anion Gap 9 13 BUN 33 H 31 H Creatinine 0.78 0.74 Est GFR ( Amer) > 60 > 60 Est GFR (Non-Af Amer) > 60 > 60 Glucose 86 90 Lactic Acid Calcium 9.4 9.4 Magnesium 2.7 H Fluid Type Fluid Source Fluid Color Fluid Appearance Fluid Viscosity Fluid WBC Fluid RBC 03/12/18 03/12/18 12:34 14:00 WBC RBC Hgb Hct MCV MCH MCHC RDW Plt Count Seg Neutrophils % Lymphocytes % Monocytes % Eosinophils % Basophils % Absolute Neutrophils Absolute Lymphocytes Absolute Monocytes Absolute Eosinophils Absolute Basophils Sodium Potassium Chloride Carbon Dioxide Anion Gap BUN Creatinine Est GFR ( Amer) Est GFR (Non-Af Amer) Glucose Lactic Acid 2.1 Calcium Magnesium Fluid Type PLEURAL Fluid Source LUNG Fluid Color YELLOW Fluid Appearance CLOUDY Fluid Viscosity SLIGHTLY VISCOUS Fluid WBC 9650 Fluid RBC 94 03/10/18 03/10/18 03/10/18 08:55 08:55 15:03 Creatine Kinase < 20 L CK-MB (CK-2) 0.43 Troponin I < 0.012 < 0.012 NT-Pro-B Natriuret Pep 2070 H 03/12/18 06:07 Creatine Kinase CK-MB (CK-2) Troponin I NT-Pro-B Natriuret Pep 801 H Impressions: Chest/Abdomen CTA 03/10/18 09:07 IMPRESSION: Extensive pneumonia in the right lung. Subpulmonic pleural effus ion. Plan Time Spent: Greater than 30 Minutes
--- NOTE | 2018-03-12 21:47 | CONSULTATION REPORT E ---
Consultation Report NAME: AARON VALENCIA : 1970 AGE: 47Y DATE: 03/12/2018 ROOM: 336 A TO: SOFÍA BECKER M.D. FROM: RENO PETER MD Requesting Physician HISTORY OF PRESENT ILLNESS: The patient is a 47-year-old female who came in for increasing shortness of breath 2 days ago. The patient claimed that she has been coughing yellow-green phlegm over the last 2-3 weeks, has increased shortness of breath and purulent sputum production. Went to urgent care about 2 times and was treated for asthma. Condition worsened, thus the patient went to the emergency room and eventually admitted. On chest x-ray on admission there is a massive opacity involving the right lung. CT scan was subsequently ordered showing no PE but extensive pneumonia and moderate pleural effusion and, thus, the patient was admitted and currently treated on IV Levaquin and ceftriaxone. Sputum culture was sent, no results available yet. Blood cultures sent. One bottle showed gram positive cocci. PAST MEDICAL HISTORY: Unremarkable. SOCIAL HISTORY: The patient never smoked and the patient. FAMILY HISTORY: Mother and father still alive. Denies any history of significant medical problems. ALLERGIES: No known drug allergies. HOME MEDICATIONS: No home medications. REVIEW OF SYSTEMS: CONSTITUTIONAL: No fever, chills. EYES: No jaundice, no pallor. EARS, NOSE, AND THROAT: No ear drainage. No nasal discharge. CHEST AND LUNGS: Increased respirations, shortness of breath. Coughing yellow-green phlegm. ABDOMEN: No nausea, vomiting, or diarrhea. EXTREMITIES: No swelling. PHYSICAL EXAMINATION: GENERAL: The patient is awake, alert, oriented x3. VITAL SIGNS: Temperature 97.6 with a T-max of 98.3, heart rate is 97, blood pressure is 147/101, respirations 22, saturation is 98% on BiPAP on 30% FiO2, IPAP of 15, and PEEP of 5. EYES: No jaundice or pallor. EARS, NOSE, AND THROAT: No ear drainage. No nasal discharge. CHEST AND LUNGS: Decreased breath sounds right lung, fine rales. No wheezing, no rhonchi. CARDIOVASCULAR: S1, S2 distinct. Normal rate and regular rhythm. ABDOMEN: Flabby, positive bowel sounds, soft, nondistended, nontender. EXTREMITIES: No joint swelling, no cellulitis. LABORATORY DATA: CBC done today shows white count of 18.4 from 31.3 two days ago, hemoglobin is 10.7, hematocrit is 31.7, bandemia none, 2% two days ago. Chemistry done today showed sodium is 135, potassium is 5.1, chloride 107, CO2 is 19, BUN 32, creatinine 0.78. IMAGING STUDIES: Chest CT scan showed massive pneumonia involving the right lung with mild to moderate pleural effusion. Chest x-ray today showed worsening opacity involving the right lung. ASSESSMENT: 1. Pneumonia right lung. 2. Pleural effusion, mild to moderate. Most likely parapneumonic. PLAN/RECOMMENDATION: 1. We will do a chest ultrasound today. 2. We will plan to do an ultrasound guided thoracentesis if the pleural effusion is moderate in amount and plan to do a chest tube if the pleural effusion is infected. 3. Continue the IV Levaquin 750 mg. 4. We will add Zosyn 3.375 mg IV every 8 hours. 5. We will add vancomycin 1 gram IV piggyback, just one dose until we get all the results. 6. We will decide tomorrow if we need to continue the vancomycin. Addendum: Chest ultrasound performed by myself. Left chest ultrasound showed no pleural effusion. Right chest ultrasound showed loculated pleural effusion, multiple, which was not well appreciated or described on the chest CT scan report. The loculations may not be communicating to each other, because patient started coughing frequently after withdrawing 300 ml of purulent yellow white opaque turbid pleural fluid. Inserting a chest tube or pigtail will not be effective to drain the empyema completely and effectively. Patien needs thoracic surgery evaluation and possible VATS & pleural decortication. Called [facility] thoracic surgeon environmental health technician - Dr Billy and discussed patient's condition. He agreed to accept patient for transfer and further evaluation and management. Spoke to hospitalist Dr Fraga and discussed findings and treatment plan. Time spent 90 minutes evaluating patient, reviewing notes, labs,chest xrays, chest CT scan, performing and analyzing chest ultrasound images, preparing thoracentesis materials, discussing patient's condition to patient and family, hospitalist and thoracic surgeon and arranging transfer. DICTATING PHYSICIAN: SOFÍA BECKER MD,LISETTE,MPH [id number] PHY#: [id number] ID: [id number] JOB#: [id number] ACCT: [id number] cc:SOFÍA BECKER M.D. > ARIEL
[2018-03-14 07:03] LABS: GLUCOSE BODY FLUID < 2 mg/dL (.); LDH BODY FLUID 4247 IU/L (.)
== END 2018-03-12 18:56 | disposition short-term general hospital (02) | DRG 871 ==
LOC: ER 08:13 → EH 11:01 → 3S 17:56
PROVIDERS: ADMIT Internal Medicine; ATTEND Internal Medicine
PROC: 5A09457 Assistance with Respiratory Ventilation, 24-96 Consecutive Hours, Continuous Positive Airway Pressure (ICD-10-PCS; 2018-03-10)
PROC: 0W993ZZ Drainage of Right Pleural Cavity, Percutaneous Approach (ICD-10-PCS; principal; 2018-03-12)
DX: A41.9 Sepsis, unspecified organism (principal); J18.9 Pneumonia, unspecified organism; J86.9 Pyothorax without fistula; J90 Pleural effusion, not elsewhere classified; Z87.891 Personal history of nicotine dependence
CPT/HCPCS: 32555; 36415; 71045; 71046; 71275; 76604; 80048; 80053; 81001; 82550; 82553; 82803; 82945; 83605; 83615; 83735; 83880; 84157; 84439; 84443; 84484; 85025; 85652; 87015; 87040; 87070; 87075; 87077; 87101; 87116; 87186; 87205; 87206; 89050; 93005; 93010; 94640; 94660; 96361; 96365; 99291; 99292; J0696; J1650; J1885; J1956; J2543; J3370; J3490; J7030; J7060; J7620